=== PATIENT | female | born 1965 | race Caucasian/White ===

== ENCOUNTER 2016-04-07 13:21 | Outpatient (CLI) | payer OTHER, SELFPAY ==
[2016-04-07 15:09] LABS: ALT (SGPT) 14 U/L (0-55); AST (SGOT) 17 U/L (5-34); Alkaline Phosphatase 71 U/L (40-150); Anion Gap 12 mmol/L (10-20); BUN (Urea Nitrogen) 12 mg/dL (9.8-20.1); Bilirubin, Total 0.6 mg/dL (0.2-1.2); Calc. Creatinine Clearance 0 mL/min (70-130); Calcium 10.1 mg/dL (7.8-10.44); Carbon Dioxide 23 mmol/L (22-29); Chloride 110 mmol/L (98-107); Estimated GFR-MDRD 73; Globulin 2.7 g/dL (2.4-3.5); Protein, Total 6.7 g/dL (6.0-8.3)
[2016-04-07 21:39] LABS: Band 2 % (5-11); Hematocrit 45.6 % (36.0-47.0); Mean Platelet Volume 6.2 fL (7.4-10.4); Neutrophil 60 % (42-75); Red Blood Cell (RBC) Count 4.73 mill/uL (4.20-5.40); White Blood Cell (WBC) Count 5.1 thou/uL (4.8-10.8)
== END 2016-04-07 13:22 | disposition home or self-care (01) ==
LOC: BURLAB 13:21
PROVIDERS: ATTEND Physician Assistant Medical
DX: B18.2 Chronic viral hepatitis C (principal)
CPT/HCPCS: 36415; 80053; 85025; 87522

== ENCOUNTER 2016-07-10 11:23 | Outpatient (CLI) | payer OTHER ==
[2016-07-12 15:09] LABS: Hep C PCR-Quant HCV Not Detected IU/mL (.)
== END 2016-07-10 11:24 | disposition home or self-care (01) ==
LOC: BURLAB 11:23
PROVIDERS: ATTEND Physician Assistant Medical
DX: B18.2 Chronic viral hepatitis C (principal)
CPT/HCPCS: 36415; 87522

== ENCOUNTER 2016-07-29 14:09 | Outpatient (CLI) | payer OTHER ==
--- NOTE | 2016-07-29 20:49 | RAD ---
RIGHT HAND THREE VIEWS 07/29/16 The first MCP joint was unremarkable in appearance. There may be some swelling of the PIP joint of t he third digit. No acute fractures or areas of bony destruction were seen. There is a small skye of bone at the PIP joint of the index finger that is obviously from old trauma. Also, there was probab ly an old well healed fracture of the fifth metacarpal. IMPRESSION: Old changes but no acute bony finding. POS: HOME
== END 2016-07-29 14:10 | disposition home or self-care (01) ==
LOC: BURRAD 14:09
PROVIDERS: ATTEND Physician Assistant
DX: S61.011A Laceration without foreign body of right thumb without damage to nail, initial encounter (principal); L03.011 Cellulitis of right finger; M79.644 Pain in right finger(s)

== ENCOUNTER 2023-11-27 13:41 | Emergency (ER) | payer OTHER, SELFPAY | END 2023-11-27 14:50 | disposition home or self-care (01) | LOC: BURERS 13:41 | DX: M54.42 Lumbago with sciatica, left side (principal); M25.552 Pain in left hip; F17.210 Nicotine dependence, cigarettes, uncomplicated | CPT/HCPCS: 72131 ==